=== PATIENT | female | born 1975 | race Caucasian/White ===

== ENCOUNTER 2023-04-25 06:41 | Emergency (ER) | payer OTHER, SELFPAY ==
--- NOTE | ~2023-04-25 | XR_ITS ---
Clinical Indication: Cough PA and lateral views of the chest: Comparison: None Findings: The lungs are clear, without evidence of focal consolidation or pleural effusion. Cardiome diastinal silhouette is within normal limits. Bones and soft tissues are unremarkable. Impression: Normal chest. Reviewed, dictated and finalized at location . FARMER Impression: Normal chest.
[2023-04-25 06:46] VITALS: BP 104/59; PULSE 91; RESP 20; TEMP 36.6; O2SAT 99
[2023-04-25 06:50] VITALS: BP 132/86; PULSE 81; RESP 18; O2SAT 100
[2023-04-25] MEDS: ALBUTEROL SULFATE (*SP) INHALER 2 PUFF INHALATION (07:40)
[2023-04-25 08:21] LABS: Influenza A QL RT-PCR Negative (Negative); Influenza B QL RT-PCR Negative (Negative); SARS-CoV-2 RNA PCR Negative (Negative)
--- NOTE | 2023-04-25 08:55 | ED.GENADULT ---
HPI - General Adult General Chief complaint: Upper Respiratory Infection Stated complaint: Cough, fever Time Seen by Provider: 04/25/23 06:59 History of Present Illness HPI narrative: Patient is a 47-year-old female who presents ER with cough and fever. Ongoing over the last 2 days. Associate with sinus congestion and sore throat. No chest pain or chest pressure. No known sick contacts. No nausea or vomiting. No exertional dyspnea. Patient has been unable to smoke due to her cough and dyspnea. Related Data Allergies Allergy/AdvReac Type Severity Reaction Status Date / Time fish and seafood Allergy Unknown Swelling Uncoded 04/25/23 06:54 of Lip/Tongue/Throat NKDA Allergy Unknown Other Uncoded 04/25/23 06:54 NA Allergy Other Uncoded 04/25/23 06:54 Review of Systems Review of Systems: All systems reviewed & are unremarkable except as noted in HPI and below Constitutional: Constitutional: Denies chills, Reports fatigue and Reports fever(s) ENT: Reports nasal congestion and Reports sore throat Cardiovascular: Cardiovascular: Denies chest pain, Denies rapid heart rate and Denies radiating jaw, neck or arm pain Respiratory: Respiratory: Reports cough, Reports dyspnea and Reports wheezing Gastrointestinal: Gastrointestinal: Denies abdominal pain, Denies nausea and Denies vomiting Genitourinary: Genitourinary: Reports no additional female genitourinary complaints PMFSH Past Medical History Medical History (Updated 04/25/23 @ 09:02 by Rk Spaulding MD) Healthy female adult Surgical History Surgical History (Updated 04/25/23 @ 08:56 by Rk Spaulding MD) History of hysterectomy Exam Narrative: GENERAL: Well-appearing, well-nourished, and in no acute distress. HEAD: Normocephalic, atraumatic. ENT: Mucous membranes moist. NECK: Supple. CHEST: Faint Rales bibasilar. No respiratory distress, frequent cough. HEART: Regular rate and rhythm. Normal peripheral pulses. EXTREMITIES: Normal range of motion. No edema. SKIN: Warm, dry, no rash. NEURO: Alert and oriented x3. PSYCH: Normal mood and affect. Course Course Emergency Course: Patient reports breathing improved with MDI treatment. Discussed results. Discharge home. Vital Signs Vital signs: Vital Signs Temperature 97.9 F 04/25/23 06:46 Pulse Rate 91 04/25/23 06:46 Respiratory Rate 20 04/25/23 06:46 Blood Pressure 104/59 L 04/25/23 06:46 Pulse Oximetry 99 04/25/23 06:46 Oxygen Delivery Room Air 04/25/23 06:46 Temperature 97.9 F 04/25/23 06:46 Pulse Rate 81 04/25/23 06:50 Respiratory Rate 18 04/25/23 06:50 Blood Pressure 132/86 04/25/23 06:50 Pulse Oximetry 100 04/25/23 06:50 Oxygen Delivery Room Air 04/25/23 06:50 Medical Decision Making Vital Signs Vital Signs: Vital Signs Temperature 97.9 F 04/25/23 06:46 Pulse Rate 91 04/25/23 06:46 Respiratory Rate 20 04/25/23 06:46 Blood Pressure 104/59 L 04/25/23 06:46 Pulse Oximetry 99 04/25/23 06:46 Oxygen Delivery Room Air 04/25/23 06:46 Temperature 97.9 F 04/25/23 06:46 Pulse Rate 81 04/25/23 06:50 Respiratory Rate 18 04/25/23 06:50 Blood Pressure 132/86 04/25/23 06:50 Pulse Oximetry 100 04/25/23 06:50 Oxygen Delivery Room Air 04/25/23 06:50 Lab Data Labs: Lab Results 04/25/23 Range/Units 07:40 Influenza A (RT-PCR) Negative (Negative) Influenza B (RT-PCR) Negative (Negative) SARS-CoV-2 RNA (RT-PCR) Negative (Negative) Imaging Data Radiologist's impression: ITS Impressions Chest X-Ray 04/25/23 08:09 Impression: Normal chest. Discharge Plan Discharge Clinical Impression: Bronchitis Patient Disposition: Home, Self-Care Condition: Stable Instructions: Acute Bronchitis (ED) Additional Instructions: Return the ER if she cannot keep down food or water, you have fever over 100.4 ?F, you have chest pain with e
== END 2023-04-25 09:16 | disposition home or self-care (01) ==
LOC: ANHED 09:12
PROVIDERS: Emergency Provider Emergency Medicine
DX: J40 Bronchitis, not specified as acute or chronic (principal); Z20.822 Contact with and (suspected) exposure to COVID-19; Z90.710 Acquired absence of both cervix and uterus
CPT/HCPCS: 71046; 87636; 94664; 99283

== ENCOUNTER 2024-01-30 08:10 | Emergency (ER) | payer OTHER, SELFPAY ==
--- NOTE | ~2024-01-30 | US_ITS ---
LEFT LOWER EXTREMITY VENOUS ULTRASOUND Ordering provider: Leonor Kerr APRN History: . LLE swelling and pain . Comparison: None. FINDINGS: --COMMON FEMORAL: Patent and free of thrombus. Normal compressibility, phasic flow and augmentation. --PROXIMAL SUPERFICIAL FEMORAL: Patent and free of thrombus. Normal compressibility, phasic flow and augmentation. --DISTAL SUPERFICIAL FEMORAL: Patent and free of thrombus. Normal compressibility, phasic flow and au gmentation. --POPLITEAL: Patent and free of thrombus. Normal compressibility, phasic flow and augmentation. --POSTERIOR TIBIAL: Patent and free of thrombus. Normal compressibility, phasic flow and augmentation . IMPRESSION: Negative left lower extremity venous US. No deep vein thrombosis. Reviewed, dictated and finalized at location A.
--- NOTE | ~2024-01-30 | XR_ITS ---
EXAMINATION: XR knee LT min 4V DATE: 01/30/2024 09:51 INDICATION: Left knee pain. Fall. TECHNIQUE: 4 views of left knee were obtained. COMPARISON: None. FINDINGS: Bone alignment is normal. No fracture. There is mild osteoarthritis of medial and lateral c ompartments. No knee joint effusion. IMPRESSION: 1. Mild left knee osteoarthritis. Reviewed, dictated and finalized at location A.
[2024-01-30 08:17] VITALS: BP 159/77; PULSE 85; RESP 20; TEMP 36.4; O2SAT 99
[2024-01-30] MEDS: KETOROLAC (*BKC) 60 MG/2 ML VIAL IM (09:15)
--- NOTE | 2024-01-30 09:18 | ED.EXTPRO ---
HPI - Extremity Problem General Chief complaint: Extremity Problem,Nontraumatic Stated complaint: left knee pain Time Seen by Provider: 01/30/24 08:54 Source: patient Mode of arrival: ambulatory Limitations: no limitations History of Present Illness HPI Narrative: Pt is a 48 year old female who presents to the ER with pain behind her L knee that radiates up to her hip and down to her foot. She reports the pain started about a month ago, but this morning she felt it pop when she was walking up the stairs. Pt endorses pain with movement that feels like a radiating cramp. She denies any shortness of breath, chest pain, or saddle anesthesia. Related Data Allergies Allergy/AdvReac Type Severity Reaction Status Date / Time No Known Drug Allergies Allergy Verified 01/30/24 09:10 fish and seafood Allergy Unknown Swelling Uncoded 01/30/24 08:21 of Lip/Tongue/Throat NA Allergy Other Uncoded 01/30/24 08:21 Review of Systems Review of Systems: All systems reviewed & are unremarkable except as noted in HPI and below PMFSH Past Medical History Medical History Healthy female adult Surgical History Surgical History History of hysterectomy Exam Narrative: GENERAL: Well appearing, well-nourished, non-toxic, in no acute distress. RESPIRATORY: Airway patent, respirations nonlabored. Clear to auscultation bilaterally, no rales, rhonchi, wheezing. CARDIOVASCULAR: Regular rate and rhythm without murmurs, rubs, or gallops. Peripheral pulses 2+ and equal bilaterally. MUSCULOSKELETAL: Moves all extremities. Strength/ROM intact without gross deformities. Valgus and varus tests negative. Ange test negative. SKIN: Warm, dry, normal color. No rashes. NEURO: A&O X3. Speech clear. Cranial nerves II-XII grossly intact. Steady gait. No ataxic movements. . Course Vital Signs Vital signs: Vital Signs Temperature 36.4 C 01/30/24 08:17 Pulse Rate 85 01/30/24 08:17 Respiratory Rate 20 01/30/24 08:17 Blood Pressure 159/77 H 01/30/24 08:17 Pulse Oximetry 99 01/30/24 08:17 Oxygen Delivery Room Air 01/30/24 08:17 Temperature 36.4 C 01/30/24 08:17 Pulse Rate 85 01/30/24 08:17 Respiratory Rate 20 01/30/24 08:17 Blood Pressure 159/77 H 01/30/24 08:17 Pulse Oximetry 99 01/30/24 08:17 Oxygen Delivery Room Air 01/30/24 08:17 MDM - Extremity (Nontraumatic) MDM Narrative Medical decision making narrative: Pt is a 48 year old female who presents to the ER with pain behind her L knee that radiates up to her hip and down to her foot. She reports the pain started about a month ago, but this morning she felt it pop when she was walking up the stairs. Pt endorses pain with movement that feels like a radiating cramp. She denies any shortness of breath, chest pain, or saddle anesthesia. Upon examination, pt moves all extremities. Strength/ROM intact without gross deformities. Valgus and varus tests negative. Ange test negative. Pt has mild swelling behind her L knee compared to her R knee. Wells score is 2 = moderate probability for DVT, positive Tico's test. Will proceed with L knee x-ray and US venous doppler study. Toradol IM ordered to treat swelling and pain. Pt's knee x-ray showed mild left knee osteoarthritis. Venous doppler US was negative with no signs of deep vein thrombosis. Results relayed to pt. OIL BOILER performed. Pt reports she has a history of lower back and was advised to have surgery. Straight leg test was performed, which was negative, but pt did endorse increased knee pain that radiates to her hip with Naseem test. Plan for pt to follow-up with PCP if pain continues. Will prescribe pt steroid pack upon discharge to home and advised pt to take Ibuprofen 800mg TID. Pt in agreement with plan. Differential Diagnosis Differential diagnosis: Likely gout,
[2024-01-30 11:15] VITALS: BP 158/104; PULSE 60; RESP 17; O2SAT 98
[2024-01-30 11:20] VITALS: BP 158/104; PULSE 60; RESP 17; O2SAT 98
== END 2024-01-30 11:18 | disposition home or self-care (01) ==
PROVIDERS: Emergency Provider Registered Nurse
DX: S86.912A Strain of unspecified muscle(s) and tendon(s) at lower leg level, left leg, initial encounter (principal); R60.0 Localized edema; X58.XXXA Exposure to other specified factors, initial encounter
CPT/HCPCS: 73564; 93971; 96372; 99284; J1885

== ENCOUNTER 2024-05-28 22:33 | Emergency (ER) | payer OTHER, SELFPAY ==
--- NOTE | ~2024-05-28 | XR_ITS ---
Clinical Indication: Cough PA and lateral views of the chest: Comparison: 04/25/2023 Findings: The lungs are clear, without evidence of focal consolidation or pleural effusion. Cardiome diastinal silhouette is within normal limits. Bones and soft tissues are unremarkable. Impression: Normal chest. Reviewed, dictated and finalized at location . MEL SELECTOR Impression: Normal chest.
[2024-05-28 22:39] VITALS: BP 143/90; PULSE 83; RESP 16; O2SAT 100
[2024-05-29 00:38] VITALS: TEMP 37.1
[2024-05-29 00:39] VITALS: O2SAT 98
--- NOTE | 2024-05-29 00:51 | ED_ITS ---
HPI - URI/Sore Throat General Chief Complaint: Upper Respiratory Infection Stated Complaint: cough, body aches Time Seen by Provider: 05/29/24 00:32 Source: patient Mode of arrival: ambulatory Limitations: no limitations History of Present Illness HPI Narrative: this is a 48-year-old female that presents to the emergency department for cold symptoms. Ongoing over the last couple of days. Reports cough, congestion, rhinorrhea, sore throat. Also reports myalgias. She has been taking [id number] medications with little relief. No fevers. Related Data Allergies Allergy/AdvReac Type Severity Reaction Status Date / Time fish and seafood Allergy Unknown Swelling Uncoded 05/28/24 22:44 of Lip/Tongue/Throat Review of Systems Review of Systems: CONSTITUTIONAL: Denies fever ENT: Reports rhinorrhea, congestion, sore throat RESPIRATORY: Reports cough All systems reviewed & are unremarkable except as noted in HPI and below PMFSH Past Medical History Medical History Healthy female adult Surgical History Surgical History History of hysterectomy Social History Social History (Updated 05/29/24 @ 00:52 by Jacy Knapp PA-C) Smoking status: Current every day smoker Exam Narrative: GENERAL: Well-appearing, well-nourished, and in no acute distress. HEAD: Normocephalic, atraumatic. EYES: EOMI. ENT: Nares clear, no rhinorrhea or epistaxis. Mucous membranes moist. Oropharynx without tonsillar hypertrophy exudate or other lesions. Bilateral TMs pearly nolan non-bulging NECK: Supple. No adenopathy or masses. CHEST: Clear to auscultation. No respiratory distress. No wheezes rales or rhonchi HEART: Regular rate and rhythm. No murmur heard. Normal peripheral pulses. EXTREMITIES: Normal range of motion. No edema. SKIN: Warm, dry, no rash. NEURO: No focal deficits. Alert and oriented x3. PSYCH: Normal mood and affect Course Course Emergency Course: patient updated on workup and agrees with plan of care Vital Signs Vital signs: Vital Signs Pulse Rate 83 05/28/24 22:39 Respiratory Rate 16 05/28/24 22:39 Blood Pressure 143/90 H 05/28/24 22:39 Pulse Oximetry 100 05/28/24 22:39 Oxygen Delivery Room Air 05/28/24 22:39 Temperature 98.7 F 05/29/24 00:38 Pulse Rate 63 05/29/24 01:17 Respiratory Rate 12 05/29/24 01:17 Blood Pressure 120/91 H 05/29/24 01:17 Pulse Oximetry 98 05/29/24 01:17 Oxygen Delivery Room Air 05/29/24 00:39 MDM - URI/Sore Throat MDM Narrative Medical decision making narrative: patient presents to the emergency department for cold symptoms ongoing over the last couple of days. She is afebrile and nontoxic appearing. Oxygen saturations normal on room air. Influenza, RSV and COVID screens are negative. Chest x-ray without acute cardiopulmonary abnormality. Patient updated on workup and agrees with plan of care. She is to follow up with provider. She was given warnings to return to the ER Differential Diagnosis Differential diagnosis: Likely upper respiratory infection, sinusitis, viral infection, bronchitis, influenza and other (covid, pneumonia) Lab Data Attestation: I reviewed the patient's lab results. Labs: Lab Results 05/29/24 Range/Units 00:38 Influenza A (RT-PCR) Negative (Negative) Influenza B (RT-PCR) Negative (Negative) RSV (RT-PCR) Negative (Negative) SARS-CoV-2 RNA (RT-PCR) Negative (Negative) Imaging Data My impression: Chest x-ray: no acute cardiopulmonary abnormality Critical Care Time Critical Care Time Critical Care Time: No Discharge Plan Discharge Clinical Impression: Acute bronchitis Qualifiers: Bronchitis organism: unspecified organism Qualified Code(s): J20.9 - Acute bronchitis, unspecified Patient Disposition: Home, Self-Care Condition: Stable Instructions: Acute Bronchitis (ED) Additional Instructions: Return to the emergency department for worsening symptoms, or any other concerns Remain well-hydrated, get plenty of rest. Take Tylenol or Motrin [id number] for pain as needed. Flonase for nasal congestion. Zyrtec for runny nose. Lozenges or Chloraseptic spray for sore throat. albuterol 2 puffs every 4-6 hours as needed for shortness of breath. Continue prednisone as pres cribed Follow up with primary care doctor Patient Language: Telugu Prescriptions: New albuterol sulfate [Ventolin HFA] 90 mcg/actuation HFA aerosol inhaler 2 puff inhalation QID PRN (Reason: shortness of breath or wheezing) Qty: 8.5 0RF prednisone 20 mg tablet 40 mg PO DAILY 4 Days Qty: 8 0RF No Action prednisone 50 mg tablet 50 mg PO DAILY Qty: 7 0RF albuterol sulfate 90 mcg/actuation HFA aerosol inhaler 2 puff inhalation QID PRN (Reason: shortness of breath or wheezing) Qty: 8 0RF methylprednisolone [Medrol (Rickie)] 4 mg tablets,dose pack See Rx Instructions .ROUTE .COMPLEX Qty: 21 0RF Rx Instructions: orally per package directions naproxen 500 mg tablet 500 mg PO BID PRN (Reason: pain) Qty: 20 0RF Follow-up/Referrals: PHYSICIAN,DATA CENTER TECHNICIAN [Primary Care Provider] - Joseph Urbina MD [Physician] -
[2024-05-29 00:56] VITALS: PULSE 80; RESP 17
[2024-05-29] MEDS: IPRATROPIUM 0.5 MG/ALBUTEROL SULFATE 2.5 MG AMPUL.NEB 3 ML INHALATION (00:56)
[2024-05-29] MEDS: predniSONE 20 MG TABLET 60 MG PO (01:14)
[2024-05-29 01:17] VITALS: BP 120/91; PULSE 63; RESP 12; O2SAT 98
[2024-05-29 01:20] LABS: Influenza A QL RT-PCR Negative (Negative); Influenza B QL RT-PCR Negative (Negative); RSV RNA, RT-PCR Negative (Negative); SARS-CoV-2 RNA PCR Negative (Negative)
== END 2024-05-29 02:03 | disposition home or self-care (01) ==
PROVIDERS: Emergency Provider Physician Assistant
DX: J20.9 Acute bronchitis, unspecified (principal); Z20.822 Contact with and (suspected) exposure to COVID-19; Z90.710 Acquired absence of both cervix and uterus
CPT/HCPCS: 71046; 87637; 94640; 99283; J7512

== ENCOUNTER 2024-07-14 11:45 | Emergency (ER) | payer OTHER, MEDICAID, SELFPAY ==
--- NOTE | ~2024-07-14 | XR_ITS ---
EXAMINATION: XR chest 2V Exam Date/Time: 07/14/2024 15:15 ADOBE CQ DEVELOPER HISTORY: cough AND SORE THROAT X 2 DAYS Comparison: 05/29/2024. RESULT: Lines, tubes, and devices: None. Lungs and pleura: Clear. Cardiomediastinal silhouette: Stable. Other: No acute osseous or upper abdominal finding. IMPRESSION: No acute cardiopulmonary process. Reviewed, dictated and finalized at location K. E CQ DEVELOPER
--- OUTSIDE RECORDS SUMMARY | 2024-07-14 11:47 | XMS_ITS | Patient Health Summary ---
Author Organization [facility] Address [address] [place] [address] Care Team Providers Care Exhaust Machine Operator Name Role Phone Unavailable Primary Care Provider Unavailabl e Note from [facility],non-owned Affiliates and Associated Physician Practices is amultiple site organization consisting of ambulatory clinics and hospital sitesin [place], [place], [place] and [place]. This disclosure is being madepursuant to the Care Everywhere program and may not contain all information available regarding this patient. Last updated 18.[facility] Allergies No known active allergies Medications * Be aware that medications may not be up to date on this document. Alwaysverify current medications with the patient. * methocarbamol (ROBAXIN) 500 MG tablet(Started 10/01/2020) Take 1,000 mg by mouth 2 times daily * traMADol (ULTRAM) 25 MG TABS tablet Take by mouth every 6 hours as needed * methylPREDNISolone (MEDROL, PETER, PO) Active Problems No known active problems Social History Tobacco Use Types Packs/Day Years Used Date Smoking Tobacco: Every Day Cigarettes Smokeless Tobacco: Never Alcohol Use Standard Drinks/Week Comments Yes 0 (1 standard drink = 0.6 oz pur e alcohol) Sex and Gender Information Value Date Recorded Sex Assigned at Not on file Gender Identity Not on file Sexual Orientation Not on file Last Filed Vital Signs Vital Sign Reading Time Taken Comments Blood Pressure 152/92 12/30/2020 3:32 PM CDT Pulse 92 12/30/2020 3:32 PM CDT Temperature 36.2 ??C (97.1 ??F) 12/30/2020 3:32 PM CD T Respiratory Rate 20 10/09/2020 2:09 PM CDT Oxygen Saturation 96% 12/30/2020 3:32 PM CDT Inhaled Oxygen Concentration - - Weight 76.7 kg (169 lb) 12/30/2020 3:32 PM CDT Height 160 cm (5' 3 ) 12/30/2020 3:32 PM CDT Body Mass Index 29.94 12/30/2020 3:32 PM CDT
--- OUTSIDE RECORDS SUMMARY | 2024-07-14 11:47 | XMS_ITS | Referral Summary ---
Author Organization [facility] Address [address] [place] [address] Care Team Providers Care Lawn Service Supervisor Name Role Phone Unavailable Primary Care Provider Unavailabl e Source Comments [facility],non-owned Affiliates and Associated Physician Practices is amultiple site organization consisting of ambulatory clinics and hospital sitesin [place], [place], [place] and [place]. This disclosure is being madepursuant to the Care Everywhere program and may not contain all information available regarding this patient. Last updated 18.[facility] Allergies No known active allergies Medications * Be aware that medications may not be up to date on this document. Alwaysverify current medications with the patient. Medication Sig Dispensed Refills Start Date End Date Status methocarbamol (ROBAXIN) 500 MG tablet Take 1,000 mg by mouth 2 times daily 10/01/2020 Active traMADol (ULTRAM) 25 MG TABS tablet Take by mouth every 6 hours as needed Active methylPREDNISolone (MEDROL, PETER, PO) Active Active Problems No known active problems Social [...] Mass Index 29.94 12/30/2020 3:32 PM CDT Plan of Treatment Not on file
--- OUTSIDE RECORDS SUMMARY | 2024-07-14 11:47 | XMS_ITS | Continuity of Care Document ---
Author Organization [facility] Address [id number] [place] [address] [address] [place] [address] Phone Care Team Providers Care Pantograph Operator Name Role Phone Doisy, Edward Unavailable Unavailable Advance Directives Directive Yes / No Effective Date File Name No Information Encounters Encounter Description Practice Location Reason(s) For Visit Diagnoses Date Provider Providers Copied on Encounter [facility], [address], [place], [place], [id number], [place] tel:[phone] [facility] No Information [address] Doisy Edward. [address] , [address], [place], [address], [place]. tel:[phone] Family History Family Member Type Diagnosis Age At Onset No Information Payers Payer name Insurance type Covered alliance party ID Authoriza timando(s) Medicaid [facility] [id number] Social History Type Description Quantity Date Captured Comments Sex Female Smoking Status No Information Chief Complaint And Reason For Visit No Information Reason For Referral Reason For Referral No Information History Of Present Illness Encounter Date Complaint History Of Prese nt Illness No Information Functional Status Date Functional Assessmen t No Information Instructions Date Instruction Additional Infor mation No Information Assessments Type Assessment Date No Information Patient Care Teams Name Effective Dates (start - stop) Status Members No Information
--- OUTSIDE RECORDS SUMMARY | 2024-07-14 11:47 | XMS_ITS | Continuity of Care Document ---
Author Organization [facility] Address [address] [place] [address] Phone Care Team Providers Care Recruit Instructor Name Role Phone Nuria MARRUFO Keisha Unavailable Unavailable Allergies, Adverse Reactions, Alerts Substance Reaction Status Criticality No Known Allergies Active No Inform ation Advance Directives Directive Yes / No Effective Date File Name Resuscitation Not Answered N/A N/A Life Support Not Answered N/A N/A Intubation Not Answered N/A N/A Antibiotics Not Answered N/A N/A IV Fluid Support Not Answered N/A N/A Tube Feed Not Answered N/A N/A Other Directive N/A N/A WARNING:The information contained in this section is historical and is provided for information only and does not constitute a legal document or any assurance that the information is still accurate. Please verify the information with the rea of the legal document before using it for clinical purposes. Encounters Encounter Description Practice Location Reason(s) For Visit Diagnoses Date Provider Providers Copied on Encounter [facility], [address], [place], [place], [id number], [place] tel:[phone] [facility] left knee pain (chief complaint) Left knee pain Nuria Valdes. [address], [address], [place], [address], [place]. tel:[phone] Referring Provider: Ruben Smith, [address], [place], [address]. tel:[phone] Family History Family Member Type Diagnosis Age At Onset Mother Problem (finding) Alive and well Father Problem (finding) Alive and well Payers Payer name Insurance type Covered alliance party ID Authoriza timando(s) [place] [place] [employer] [place] [id number] Social History Type Description Quantity Date Captured Comments Alcohol Use Details No Caffeine Use Details coffee and soda 6 cups per day Tobacco Use Status No Information Smoking Status Current every day smoker Smoking Tobacco Use Details Cigarette: No Details Available Cigarette: No Details Available Sex Female Vital Signs Date / Time: Height Weight BMI Pulse Rate Blood Pressure Temperature Respiratory Rate Body Surface Area Head Circumference Head Circ. Percentile Wt./Vinh. Percentile BMI percentile Pulse Ox Inhaled Ox 9:49 AM 63.50 in 142.00 lbs 24.7 6 kg/m eter (2) 55 /min 112/62 mm[Hg] 98.20 F 100 % 100 % Chief Complaint And Reason For Visit From encounter dated '02/28/2013 10:00'. left knee pain (chief complaint) Reason For Referral Reason For Referral No Information History Of Present Illness Encounter Date Complaint History Of Prese nt Illness No Information Functional Status Date Functional Assessmen t No Information Instructions Date Instruction Additional Infor mation No Information Assessments Type Assessment Date No Information Mental Status Date Cognitive Assessment Orientation - Chokio ed to time, place, person, situation. Patient Care Teams Name Effective Dates (start - stop) Status Members No Information
--- OUTSIDE RECORDS SUMMARY | 2024-07-14 11:47 | XMS_ITS | Clinical Summary ---
Author Organization [facility] Address [address] [place] [address] Care Team Providers Care Death Claim Examiner Name Role Phone Unavailable Primary Care Provider Unavailabl e Source Comments [facility],non-owned Affiliates and Associated Physician Practices is amultiple site organization consisting of ambulatory clinics and hospital sitesin [place], [place], [place] and [place]. This disclosure is being madepursuant to the Care Everywhere program and may not contain all information available regarding this patient. Last updated 18.[facility] Allergies No known active allergies Medications * [...] 12/30/2020 3:32 PM CDT Plan of Treatment Health Maintenance Due Date Last Done Comments COLOGUARD (AGES 45-75) - COL ON CA SCREENING 1977 COLON MONITORING 1977 COLONOSCOPY - COLON CA SCREENING 1977 CT COLONOGRAPHY - COLON CA SCREENING 1977 Colorectal Cancer Screening 1977 FIT - COLON CA SCREENING 1977 FLEX SIG - COLON CA SCREENING 1977 LIPID TESTING 1977 MAMMOGRAM 1977 PAP SMEAR 1977 HIV SCREENING 1992 HEPATITIS C SCREENING 11/23/1995 DTAP/TDAP/TD VACCINES (1 - Tdap) 1996 HEPATITIS B VACCINE (1 of 3 - 19+ 3-dose series) 1996 PNEUMOCOCCAL VACCINE (1 of 2 - PCV) 1996 SCREENING FOR DIABETES 10/09/2020 COVID-19 VACCINE (1 - 2023-2 5 season) 2024 INFLUENZA VACCINE (#1) 2024 DEPRESSION SCREENING 06/13/2024 ZOSTER VACCINE (1 of 2) 11/28/2027 HIB VACCINE Aged Out No longer eligi ble based on patient's age to complete this topic HPV VACCINE Aged Out No longer eligi ble based on patient's age to complete this topic MENINGOCOCCAL (Group B) VACCINE Aged Out No longer eligible based on patient's age to complete this topic MENINGOCOCCAL VACCINE Aged Out No gilberto whit eligible based on patient's age to complete this topic
[2024-07-14 12:45] VITALS: BP 120/78; PULSE 80; RESP 16; TEMP 36.3; O2SAT 98
[2024-07-14 13:21] LABS: Strep Group A RT-PCR NOT DETECTED (Negative)
[2024-07-14 13:33] LABS: Influenza A QL RT-PCR Negative (Negative); Influenza B QL RT-PCR Negative (Negative); RSV RNA, RT-PCR Negative (Negative); SARS-CoV-2 RNA PCR Negative (Negative)
--- OUTSIDE RECORDS SUMMARY | 2024-07-14 14:19 | XMS_ITS | Referral Summary ---
Author Organization [facility] Address [address] [place] [address] Care Team Providers Care Supervisor Clam Bed Name Role Phone Unavailable Primary Care Provider Unavailabl e Source Comments [facility],non-owned Affiliates and Associated Physician Practices is amultiple site organization consisting of ambulatory clinics and hospital sitesin [place] and [place]. This disclosure is being madepursuant to the Care Everywhere program and may not contain all information available regarding this patient. Last updated 18.[facility] Allergies No known active allergies Medications * [...]
--- OUTSIDE RECORDS SUMMARY | 2024-07-14 14:19 | XMS_ITS | Clinical Summary ---
Author Organization [facility] Address [address] [place] [address] Care Team Providers Care Nut Grinder Name Role Phone Unavailable Primary Care Provider Unavailabl e Source Comments [facility],non-owned Affiliates and Associated Physician Practices is amultiple site organization consisting of ambulatory clinics and hospital sitesin [place], [place], [place] and [place]. This disclosure is being madepursuant to the Care Everywhere program and may not contain all information available regarding this patient. Last updated 18.[facility] Allergies No known active allergies Medications * [...]
--- OUTSIDE RECORDS SUMMARY | 2024-07-14 14:19 | XMS_ITS | Continuity of Care Document ---
Author Organization [facility] Address [id number] [place] [address] [address] [place] [address] Phone Care Team Providers Care Supervisor Elementary Education Name Role Phone Doisy, Edward Unavailable Unavailable Advance Directives Directive Yes / No Effective Date File Name No Information Encounters Encounter Description Practice Location Reason(s) For Visit Diagnoses Date Provider Providers Copied on Encounter [facility], [address], [place], [place], [id number], [place] tel:[phone] SEC [facility]ly [facility] No Information 199 9 Doisy Edward. [address] , [address], [place], [address], [place]. tel:[phone] Family History Family Member Type Diagnosis Age At Onset No Information Payers Payer name Insurance type Covered republican ID Authoriza timando(s) Medicaid [facility] [id number] Social History Type Description Quantity Date Captured [...]
--- OUTSIDE RECORDS SUMMARY | 2024-07-14 14:19 | XMS_ITS | Continuity of Care Document ---
Author Organization [facility] Address [address] [place] [address] Phone Care Team Providers Care Management Technician Name Role Phone Nuria MARRUFO Keisha Unavailable [...] Diagnoses Date Provider Providers Copied on Encounter [facility], [address], [place], [place], [id number], [place] tel:[phone] [facility] left knee pain (chief complaint) Left knee pain Nuria Valdes. [address], [address], [place], [address], [place]. tel:[phone] Referring Provider: Ruben Smith, [address], [place], [address]. tel:[phone] Family History Family Member Type Diagnosis Age At Onset Mother Problem (finding) Alive and well Father Problem (finding) Alive and well Payers Payer name Insurance type Covered alliance party ID Authoriza timando(s) [place] [employer] CI [id number] Social History Type Description Quantity Date Captured [...] Mental Status Date Cognitive Assessment Orientation - [place] ed to time, place, person, situation. Patient Care Teams Name Effective Dates (start - stop) Status Members No Information
--- OUTSIDE RECORDS SUMMARY | 2024-07-14 14:19 | XMS_ITS | Patient Health Summary ---
Author Organization [facility] Address [address] [place] [address] Care Team Providers Care Food Service Lead Name Role Phone Unavailable Primary Care Provider Unavailabl e Note from [facility],non-owned Affiliates and Associated Physician Practices is amultiple site organization consisting of ambulatory clinics and hospital sitesin [place], [place], [place] and [place]. This disclosure is being madepursuant to the Care Everywhere program and may not contain all information available regarding this patient. Last updated 18.[facility] Allergies No known active allergies Medications [...]
--- NOTE | 2024-07-14 15:15 | ED.URI ---
HPI - URI/Sore Throat General Chief Complaint: Upper Respiratory Infection Stated Complaint: MARTIN,ST,COUGH,CONGESTION Time Seen by Provider: 07/14/24 14:09 Source: patient Mode of arrival: ambulatory Limitations: no limitations History of Present Illness HPI Narrative: This is a 48-year-old female that presents to the emergency department for cold symptoms. Present over the last 2 days. Reports cough, congestion, sore throat, myalgias, headache. Denies fevers. Related Data Allergies Allergy/AdvReac Type Severity Reaction Status Date / Time fish and seafood Allergy Unknown Swelling Uncoded 07/14/24 11:46 of Lip/Tongue/Throat Review of Systems Review of Systems: CONSTITUTIONAL: Denies fever ENT: Reports rhinorrhea, congestion, sore throat CARDIOVASCULAR: Denies chest pain RESPIRATORY: Reports cough and dyspnea. All systems reviewed & are unremarkable except as noted in HPI and below PMFSH Past Medical History Medical History Healthy female adult Surgical History Surgical History History of hysterectomy Social History Social History (Updated 05/29/24 @ 00:52 by Jacy Knapp PA-C) Smoking status: Current every day smoker Exam Narrative: GENERAL: Well-appearing, well-nourished, and in no acute distress. HEAD: Normocephalic, atraumatic. EYES: EOMI. ENT: Nares clear, no rhinorrhea or epistaxis. Mucous membranes moist. Oropharynx without tonsillar hypertrophy exudate or other lesions. Bilateral TMs pearly nolan non-bulging NECK: Supple. No adenopathy or masses. CHEST: No respiratory distress. Mild, expiratory wheezing. No rales or rhonchi HEART: Regular rate and rhythm. No murmur heard. Normal peripheral pulses. EXTREMITIES: Normal range of motion. No edema. SKIN: Warm, dry, no rash. NEURO: No focal deficits. Alert and oriented x3. PSYCH: Normal mood and affect Course Course Emergency Course: patient updated on workup and agrees with plan of care Vital Signs Vital signs: Vital Signs Temperature 97.4 F L 07/14/24 12:45 Pulse Rate 80 07/14/24 12:45 Respiratory Rate 16 07/14/24 12:45 Blood Pressure 120/78 07/14/24 12:45 Pulse Oximetry 98 07/14/24 12:45 Temperature 97.4 F L 07/14/24 12:45 Pulse Rate 80 07/14/24 12:45 Respiratory Rate 16 07/14/24 12:45 Blood Pressure 120/78 07/14/24 12:45 Pulse Oximetry 98 07/14/24 12:45 Oxygen Delivery Room Air 07/14/24 14:06 MDM - URI/Sore Throat MDM Narrative Medical decision making narrative: Patient presents to the emergency department for cold symptoms present over the last 2 days. Patient is afebrile and nontoxic appearing. Oxygen saturation is normal on room air. Chest x-ray without acute cardiopulmonary abnormality. Influenza, RSV and COVID screens are negative. Strep screen is also negative. Patient will be started on oral steroids and given albuterol for acute bronchitis. She is to follow up with primary provider. She was given warnings to return to the ER Differential Diagnosis Differential diagnosis: Likely upper respiratory infection, viral infection, bronchitis, influenza and other (Pneumonia) Lab Data Attestation: I reviewed the patient's lab results. Labs: Lab Results 07/14/24 Range/Units 12:51 Influenza A (RT-PCR) Negative (Negative) Influenza B (RT-PCR) Negative (Negative) RSV (RT-PCR) Negative (Negative) SARS-CoV-2 RNA (RT-PCR) Negative (Negative) Group A Strep (PCR) Not detected (Negative) Imaging Data Radiologist's impression: ITS Impressions Chest X-Ray 07/14/24 15:30 IMPRESSION: No acute cardiopulmonary process. Critical Care Time Critical Care Time Critical Care Time: No Discharge Plan Discharge Clinical Impression: Acute bronchitis Qualifiers: Bronchitis organism: unspecified organism Qualified Code(s): J20.9 - Acute bronchitis, unspecified Patient Disposition: Home, Self-Care Condition: Stable Instructions: Acute Bronchitis (ED) Additional Instructions: Return to the emergency department for worsening symptoms, or any other concerns Remain well-hydrated, get plenty of rest. Take Tylenol or Motrin [id number] for pain as needed. Flonase for nasal congestion. Zyrtec for runny nose. Lozenges or Chloraseptic spray for sore throat. Albuterol 2 puffs every 4-6 hours as needed for shortness of breath or wheezing. Continue oral steroid as prescribed Follow up with primary care doctor Patient Language: Arabic Prescriptions: New prednisone 20 mg tablet 40 mg PO DAILY 4 Days Qty: 8 0RF albuterol sulfate [Ventolin HFA] 90 mcg/actuation HFA aerosol inhaler 2 puff inhalation QID PRN (Reason: shortness of breath or wheezing) Qty: 8.5 0RF No Action albuterol sulfate [Ventolin HFA] 90 mcg/actuation HFA aerosol inhaler 2 puff inhalation QID PRN (Reason: shortness of breath or wheezing) Qty: 8.5 0RF prednisone 20 mg tablet 40 mg PO DAILY 4 Days Qty: 8 0RF prednisone 50 mg tablet 50 mg PO DAILY Qty: 7 0RF albuterol sulfate 90 mcg/actuation HFA aerosol inhaler 2 puff inhalation QID PRN (Reason: shortness of breath or wheezing) Qty: 8 0RF methylprednisolone [Medrol (Rickie)] 4 mg tablets,dose pack See Rx Instructions .ROUTE .COMPLEX Qty: 21 0RF Rx Instructions: orally per package directions naproxen 500 mg tablet 500 mg PO BID PRN (Reason: pain) Qty: 20 0RF Follow-up/Referrals: PHYSICIAN,[facility] [employer] [Primary Care Provider] -
[2024-07-14] MEDS: predniSONE 20 MG TABLET 40 MG PO (15:26)
[2024-07-14 15:44] VITALS: PULSE 55; RESP 16
[2024-07-14] MEDS: IPRATROPIUM 0.5 MG/ALBUTEROL SULFATE 2.5 MG AMPUL.NEB 3 ML INHALATION (15:44)
[2024-07-14 15:51] VITALS: PULSE 65; RESP 16
== END 2024-07-14 16:08 | disposition home or self-care (01) ==
PROVIDERS: Emergency Medicine; Emergency Provider Physician Assistant
DX: J20.9 Acute bronchitis, unspecified (principal); Z20.822 Contact with and (suspected) exposure to COVID-19
CPT/HCPCS: 71046; 87637; 87651; 94640; 99283; J7512

== ENCOUNTER 2024-10-22 08:29 | Outpatient (CLI) | payer OTHER, MEDICAID, SELFPAY ==
--- NOTE | ~2024-10-22 | XR_ITS ---
Lumbosacral Spine: AP and lateral views Clinical History: Pain Findings: The normal lordotic curve is maintained. The vertebral bodies and posterior elements are i ntact. The intervertebral disc spaces are preserved. Mild facet arthropathy present at the mid to lo wer thoracic spine. The sacroiliac joints are normally outlined. Impression: Mild facet arthropathy, as above. Reviewed, dictated and finalized at location . Impression: Mild facet arthropathy, as above.
--- NOTE | ~2024-10-22 | XR_ITS ---
Cervical Spine: AP, lateral, open-mouth views Clinical History: Pain Findings: The normal lordotic curve is maintained. The vertebral bodies and posterior elements appea r intact. There is minimal degenerative disc narrowing at C6-C7. There are minimal facet joint degene rative changes. Pre-vertebral soft tissues are unremarkable. Impression: Minimal degenerative spondylosis, as above. Reviewed, dictated and finalized at location . Impression: Minimal degenerative spondylosis, as above.
--- NOTE | ~2024-10-22 | XR_ITS ---
Clinical Indication: Back pain PA and lateral views of the chest: Comparison: 07/14/2024 Findings: The lungs are clear, without evidence of focal consolidation or pleural effusion. Cardiome diastinal silhouette is within normal limits. Bones and soft tissues are unremarkable. Impression: Normal chest. Reviewed, dictated and finalized at location . Impression: Normal chest.
--- NOTE | ~2024-10-22 | XR_ITS ---
Thoracic spine: Clinical Indication: Back pain AP and lateral views were performed. No fracture is seen. There is normal alignment of the vertebrae. The intervertebral disc spaces appe ar normal. Paravertebral soft tissues appear normal. Impression: No significant abnormalities noted. Reviewed, dictated and finalized at [facility]. Impression: No significant abnormalities noted.
--- OUTSIDE RECORDS SUMMARY | 2024-10-22 08:44 | XMS_ITS | Clinical Summary ---
Author Organization [facility] Address [address] [place] [address] Care Team Providers Care Hydraulic Press Servicer Name Role Phone Unavailable Primary Care Provider Unavailabl e Source Comments [facility],non-owned Affiliates and Associated Physician Practices is amultiple site organization consisting of ambulatory clinics and hospital sitesin [place], [place], [place] and [place]. This disclosure is being madepursuant to the Care Everywhere program and may not contain all information available regarding this patient. Last updated 18.[facility] Allergies No known active allergies Medications * Be aware that medications may not be up to date on this document. Alwaysverify current medications with the patient. methocarbamol (ROBAXIN) 500 MG tablet Take 1,000 mg by mouth 2 times daily 10/01/2020 Active traMADol (ULTRAM) 25 MG TABS tablet Take by mouth every 6 hours as needed Active methylPREDNISolo ne (MEDROL, PETER, PO) Active Active Problems No known active problems Social History Tobacco Use Types Packs/Day Years Used Date Smoking Tobacco: Every Day Cigarettes Smokeless Tobacco: Never Alcohol Use Standard Drinks/Week Comments Yes 0 (1 standard drink = 0.6 oz pur e alcohol) Comments Unknown Sex and Gender Information Value Date Recorded Sex Assigned at Not on file Legal Sex Female 2:58 PM CDT Gender Identity Not on file Sexual Orientation Not on file Last Filed Vital Signs Vital Sign Reading Time Taken Comments Blood Pressure 152/92 12/30/2020 3:32 PM CDT Pulse 92 12/30/2020 3:32 PM CDT Temperature 36.2 C (97.1 F) 12/30/2020 3:32 PM CDT Respiratory Rate 20 10/09/2020 2:09 PM CDT [...] SCREENING 1977 LIPID TESTING 1977 MAMMOGRAM 1977 HIV SCREENING 1992 HEPATITIS C SCREENING 11/23/1995 DTAP/TDAP/TD VACCINES (1 - Tdap) 1996 HEPATITIS B VACCINE (1 of 3 - 19+ 3-dose series) 1996 SCREENING FOR DIABETES 10/09/2020 COVID-19 VACCINE (1 - 2023-2 5 season) 2024 DEPRESSION SCREENING 06/13/2024 INFLUENZA VACCINE (Season Ended) 2025 ZOSTER VACCINE (1 of 2) 11/28/2027 HIB VACCINE Aged Out No longer eligi ble based on patient's age to complete this topic HPV VACCINE Aged Out No longer eligi ble based on patient's age to complete this topic MENINGOCOCCAL (Group B) VACC INE SHARED DECISION-MAKING Aged Out No longer eligibl e based on patient's age to complete this topic MENINGOCOCCAL GROUPS A/C/Y/W VACCINE Aged Out No longer eligible b ased on patient's age to complete this topic PNEUMOCOCCAL VACCINE Aged Out No long er eligible based on patient's age to complete this topic
[2024-10-22 09:18] LABS: Hematocrit 38.7 % (37.0-47.0); Mean Corpuscular Volume 67.8 fl (80-100); Mean Platelet Volume 9.7 fl (7.4-10.4); Platelet Count Result 337 k/mm3 (150-375); Red Blood Count 5.71 M/mm3 (4.2-5.4)
[2024-10-22 09:31] LABS: Alanine Aminotransferase 18 U/L (6-35); Albumin Level 4.2 g/dL (3.5-5.1); Alkaline Phosphatase 56 U/L (38-126); Anion Gap 7 mmol/L (4-12); Aspartate Amino Transferase 22 U/L (14-36); Bilirubin,Total 0.8 mg/dL (0.2-1.3); Blood Urea Nitrogen 10 mg/dL (7-17); Carbon Dioxide 26 mmol/L (22-30); Chloride 105 mmol/L (98-107); Cholesterol 186 mg/dL (0-200); Estimated Glomerular Filt Rate > 60; Glucose 85 mg/dL (65-110); HDL Direct 37 mg/dL; Sodium 138 mmol/L (137-145); Triglycerides 104 mg/dL (<150)
[2024-10-22 09:42] LABS: LDL Cholesterol Direct 118 mg/dL
[2024-10-22 09:44] LABS: Add Urine Microscopic? YES; Appearance Urine Cloudy (Clear); Bacteria Urine 1+ /hpf; Bilirubin Urine Negative (Negative); Blood Urine Negative (Negative); Color Urine Yellow (Yellow); Glucose Urine UA Negative (Negative); Ketones Urine Negative (Negative); Leukocyte Esterase Ur Negative LEU/UL (Negative); Nitrate Urine Negative (Negative); Non Pathogenic Casts 0-2; Protein Urine Negative (Negative); RBC Urine 0-2 /hpf (0-2); Squamous Epithelial Cell Urine Many /hpf (Few); Urobilinogen Urine 0.2 mg/dL (<2.0)
[2024-10-22 09:51] LABS: Hemoglobin A1C 4.8 % (<5.7)
[2024-10-22 10:06] LABS: Free T4 Free Thyroxine 1.27 ng/dL (0.78-2.19); Vitamin D 25 Hydroxy 17.7 ng/mL
[2024-10-22 10:25] LABS: Creatinine Urine 64.1 mg/dL
[2024-10-22 10:39] LABS: MALB Creatinine Ratio < 9.4 mg/g (0-30); Microalbumin Urine Random < 6.0 mg/L (0-16.7)
== END 2024-10-22 08:30 | disposition home or self-care (01) ==
LOC: ANHLAB 08:37
PROVIDERS: PCP Emergency Medicine; Visit Provider Emergency Medicine
DX: Z00.00 Encounter for general adult medical examination without abnormal findings (principal); M47.892 Other spondylosis, cervical region; M47.894 Other spondylosis, thoracic region
CPT/HCPCS: 36415; 71046; 72040; 72072; 72100; 80053; 80061; 81001; 82043; 82306; 83036; 84439; 84443; 85027

== ENCOUNTER 2024-11-07 15:40 | Outpatient (CLI) | payer OTHER, MEDICAID, SELFPAY ==
--- NOTE | ~2024-11-07 | US_ITS ---
EXAMINATION:US venous doppler LE LT INDICATION:Lump under left knee TECHNIQUE: Multiple grayscale, color flow and Doppler images of the left lower extremity deep venous systems were obtained and reviewed. COMPARISON:No prior studies for comparison. FINDINGS: The common femoral, superficial femoral and popliteal veins demonstrate normal respiratory variation, augmentation and compressibility. Color flow is also seen within the posterior tibial, pe roneal, greater saphenous and profunda veins. IMPRESSION: 1: No lower extremity deep venous thrombosis. Reviewed, dictated and finalized at location A.
--- OUTSIDE RECORDS SUMMARY | 2024-11-07 15:45 | XMS_ITS | Continuity of Care Document ---
Author Organization [facility] Address [address] [place] [address] [address] [place] [address] Phone Care Team Providers Care Insurance Follow Up Specialist Name Role Phone Doisy, Edward Unavailable Unavailable Advance Directives Directive Yes / No Effective Date File Name No Information Encounters Encounter Description Practice Location Reason(s) For Visit Diagnoses Date Provider Providers Copied on Encounter [facility], [address], [place], [place], [id number], [place] tel:[phone] SEC [facility] No Information 199 9 Doisy Edward. [address] , [address], [place], [address], [place]. tel:[phone] Family History Family Member Type Diagnosis Age At Onset No Information Payers Payer name Insurance type Covered republican ID Authoriza timando(s) Medicaid [facility] [id number] Social History Type Description Quantity Date Captured [...]
--- OUTSIDE RECORDS SUMMARY | 2024-11-07 15:45 | XMS_ITS | Continuity of Care Document ---
Author Organization [facility] Address [address] [place] [address] Phone Care Team Providers Care Counter Maker Name Role Phone Nuria MARRUFO Keisha Unavailable [...] Diagnoses Date Provider Providers Copied on Encounter [facility], [address], [place], [place], [address], [place] tel:[phone] [facility] left knee pain (chief complaint) Left knee pain Nuria Valdes. [address], [address], [place], [address], [place]. tel:[phone] Referring Provider: Ruben Smith, [address], [place], [address]. tel:[phone] Family History Family Member Type Diagnosis Age At Onset Mother Problem (finding) Alive and well Father Problem (finding) Alive and well Payers Payer name Insurance type Covered democrat ID Authoriza timando(s) [place] [employer] CI [id number] Social History Type Description Quantity Date Captured Comments Alcohol Use Details No Caffeine Use Details coffee and soda 6 cups per day Tobacco Use Status No Information Smoking Status Current every day smoker Smoking Tobacco Use Details Cigarette: No Details Available Cigarette: No Details Available Sex Female Sexual Orientation Straight or heterosexual Vital Signs Date / Time: Height Weight [...] Mental Status Date Cognitive Assessment Orientation - [place] ed to time, place, person, situation. Patient Care Teams Name Effective Dates (start - stop) Status Members No Information
--- OUTSIDE RECORDS SUMMARY | 2024-11-07 15:45 | XMS_ITS | Clinical Summary ---
Author Organization [facility] Address [address] [place] [address] Care Team Providers Care Bone Puller Name Role Phone Unavailable Primary Care Provider Unavailabl e Source Comments [facility],non-owned Affiliates and Associated Physician Practices is amultiple site organization consisting of ambulatory clinics and hospital sitesin [place], [place], [place] and [place]. This disclosure is being madepursuant to the Care Everywhere program and may not contain all information available regarding this patient. Last updated 18.[facility] Allergies No known active allergies Medications * [...] 3:32 PM CDT Height 160 cm (5' 3) 12/30/2020 3:32 PM CDT Body Mass Index [...]
== END 2024-11-07 15:41 | disposition home or self-care (01) ==
PROVIDERS: PCP Emergency Medicine; Visit Provider Emergency Medicine
DX: M54.6 Pain in thoracic spine (principal)
CPT/HCPCS: 93971

== ENCOUNTER 2024-12-29 09:56 | Emergency (ER) | payer OTHER, MEDICAID, SELFPAY ==
--- NOTE | ~2024-12-29 | XR_ITS ---
EXAMINATION: XR chest 2V 12/29/2024 10:45 INDICATION: Chest pain PROCEDURE: 2 view chest COMPARISON: Comparison to multiple prior studies sequentially, with oldest reviewed study dated 04/13. FINDINGS: The lungs are clear. The cardiomediastinal silhouette is within normal limits. There are no pleural effusions. There is no pneumothorax suspected. IMPRESSION: 1: NO ACUTE CARDIOPULMONARY DISEASE. Reviewed, dictated and finalized at location A.
--- OUTSIDE RECORDS SUMMARY | 2024-12-29 09:59 | XMS_ITS | Clinical Summary ---
Author Organization [facility] Address [address] [place] [address] Care Team Providers Care Dry Transfer Man Name Role Phone Unavailable Primary Care Provider Unavailabl e Source Comments [facility],non-owned Affiliates and Associated Physician Practices is amultiple site organization consisting of ambulatory clinics and hospital sitesin [place], [place], [place] and [place]. This disclosure is being madepursuant to the Care Everywhere program and may not contain all information available regarding this patient. Last updated 18.[facility] Allergies No known active allergies Medications * [...] season) 2024 DEPRESSION SCREENING 06/13/2024 INFLUENZA VACCINE (#1) 2025 ZOSTER VACCINE (1 of 2) 11/28/2027 [...]
[2024-12-29 10:13] VITALS: BP 173/80; PULSE 55; RESP 20; O2SAT 100
--- NOTE | 2024-12-29 10:17 | ECG_ITS ---
Test Date: 2024-12-29 10:24:15 Measurements Intervals [place] Rate: 52 P: 57 NE: 171 QRS: 63 QRSD: 87 T: 45 QT: 435 QTc: 405 Interpretive Statements SINUS BRADYCARDIA WITH SINUS ARRHYTHMIA NORMAL ELECTROCARDIOGRAM No previous ECG available for comparison Electronically Signed On 12-30-2024 08:01:14 CDT by Amilcar Park M.D.
[2024-12-29 10:26] VITALS: TEMP 36.8
[2024-12-29 10:33] VITALS: O2SAT 100
[2024-12-29 10:45] LABS: Hematocrit 38.6 % (37.0-47.0); Hemoglobin 12.0 g/dL (12.0-15.0); Immature Granulocyte Percent A 0.2 % (0-0.5); Lymphocytes Absolute Auto 3.00 K/mm3 (0.9-3.2); Mean Corpuscular HGB Conc 31.1 g/dl (32-36); Mean Corpuscular Hemoglobin 21.0 pg (26-34); Mean Corpuscular Volume 67.6 fl (80-100); Nucleated Red Blood Cells Absolute Auto 0.000 K/mm3 (0.0-0.012); Nucleated Red Blood Cells Perc 0.0 % (0.0-0.2); Platelet Count Result 366 k/mm3 (150-375); Red Blood Count 5.71 M/mm3 (4.2-5.4); White Blood Count 5.9 K/mm3 (4.5-10.0)
--- OUTSIDE RECORDS SUMMARY | 2024-12-29 10:48 | XMS_ITS | Clinical Summary ---
Author Organization [facility] Address [address] [place] [address] Care Team Providers Care Investigative Agent Name Role Phone Unavailable Primary Care Provider Unavailabl e Source Comments [facility],non-owned Affiliates and Associated Physician Practices is amultiple site organization consisting of ambulatory clinics and hospital sitesin [place], [place], [place] and [place]. This disclosure is being madepursuant to the Care Everywhere program and may not contain all information available regarding this patient. Last updated 18.[facility] Allergies No known active allergies Medications * [...]
--- NOTE | 2024-12-29 10:49 | ED.GENADULT ---
HPI - General Adult General Chief complaint: Chest Pain Stated complaint: chest tightness, congestion Time Seen by Provider: 12/29/24 10:12 History of Present Illness HPI narrative: This is a 49-year-old female presenting for headache. Patient has a history of chronic shoulder neck pain. His bother her more than usual over last several days and she now has left-sided neck pain and developed a headache. Patient also feels that she has chest tightness and sometimes initiating a swallow. However when she initiates swallow she does not have any difficulty/pain/choking. This is intermittent. She is not currently having symptoms. Patient is tearful and crying during the interview. Patient says she has a history of anxiety panic attacks. She denies any numbness when weakness or tingling to any extremity. She is able to eat and drink. She has appointment to see her primary care physician on Tuesday. Related Data Allergies Allergy/AdvReac Type Severity Reaction Status Date / Time fish and seafood Allergy Unknown Swelling Uncoded 12/29/24 10:35 of Lip/Tongue/Throat PMFSH Past Medical History Medical History Healthy female adult Surgical History Surgical History History of hysterectomy Social History Social History (Updated 05/29/24 @ 00:52 by Jacy Knapp PA-C) Smoking status: Current every day smoker Exam Narrative: APPEARANCE: No apparent distress. Head: atraumatic. Posterior oropharynx is non erythematous with no exudates, rib floor the mouth is soft EYES: EOMI, NOSE: Atraumatic NECK: Trachea midline supple RESPIRATORY: No increased rate of breathing clear to auscultation CARDIOVASCULAR: RRR, no peripheral edema ABDOMINAL: Non-distended soft nontender MUSCULOSKELETAl: Tenderness to palpation over the left trapezius, no midline spinal tenderness NEURO: Alert. Cranial nerves 2-12 grossly intact. Sensation light touch, motor function cerebellar function intact for 4 extremities. Gait exam was normal. SKIN:: Warm, dry. Normal color PSYCHIATRIC: Normal affect Course Vital Signs Vital signs: Vital Signs Pulse Rate 55 L 12/29/24 10:13 Respiratory Rate 20 12/29/24 10:13 Blood Pressure 173/80 H 12/29/24 10:13 Pulse Oximetry 100 12/29/24 10:13 Oxygen Delivery Room Air 12/29/24 10:13 Temperature 98.3 F 12/29/24 10:26 Pulse Rate 55 L 12/29/24 10:13 Respiratory Rate 12/29/24 10:13 Blood Pressure 173/80 H 12/29/24 10:13 Pulse Oximetry 100 12/29/24 10:33 Oxygen Delivery Room Air 12/29/24 10:33 Medical Decision Making [facility] Narrative Medical decision making narrative: -Course: 49 female presenting multiple complaints although the main issue appears to be a headache. Vital signs stable. Afebrile. Neuro exam normal. No red flags on H&P. Patient has significant shoulder and neck muscle soreness. This is likely causing a tension headache. She was treated with muscle relaxers and NSAIDs with complete resolution of her headache. Patient was also concerned she might be having a heart attack but her chest pain workup including 2 EKGs and troponins were unremarkable. On re-evaluation patient is resting comfortably. She is requesting discharge home and will see her primary care physician on Tuesday. She develops any new or worsening symptoms she can return to the ED for re-evaluation. -DDX includes but is not limited to: Tension headache, migraine, arthritis viral syndrome Independent EKG interpretation: Rhythm [sinus], Rate [52], [place] -[normal], [place] -[normal], QRS [narrow], QTC [normal], T waves -[negative for concerning inversions], ST Segments - [Negative for concerning elevations] Final interpretations: Sinus bradycardia Vital Signs Vital Signs: Vital Signs Pulse Rate 55 L 12/29/24 10:13 Respiratory Rate 12/29/24 10:13 Blood Pressure 173/80 H 12/29/24 10:13 Pulse Oximetry 100 12/29/24 10:13 Oxygen Delivery Room Air 12/29/24 10:13 Temperature 98.3 F 12/29/24 10:26 Pulse Rate 55 L 12/29/24 10:13 Respiratory Rate 12/29/24 10:13 Blood Pressure 173/80 H 12/29/24 10:13 Pulse Oximetry 100 12/29/24 10:33 Oxygen Delivery Room Air 12/29/24 10:33 Lab Data 12/29/24 10:36 12/29/24 10:36 Labs: Lab Results 12/29/24 Range/Units 10:36 WBC Pending RBC Pending Hgb Pending Hct Pending MCV Pending MCH Pending MCHC Pending RDW Pending Plt Count Pending MPV Pending Immature Gran % (Auto) Pending Neut % (Auto) Pending Lymph % (Auto) Pending [place] % (Auto) Pending Eos % (Auto) Pending Baso % (Auto) Pending Lymph # (Auto) Pending [place] # (Auto) Pending Eos # (Auto) Pending Baso # (Auto) Pending Abs Immat Gran (auto) Pending Absolute Neuts (auto) Pending Absolute Nucleated RBC Pending Nucleated RBC % Pending PT Pending INR Pending APTT Pending Sodium Pending Potassium Pending Chloride Pending Carbon Dioxide Pending Anion Gap Pending BUN Pending Creatinine Pending Estim Creat Clear Calc Pending Estimated GFR Pending Glucose Pending Calcium Pending Total Bilirubin Pending AST Pending ALT Pending Alkaline Phosphatase Pending Troponin I Pending Total Protein Pending Albumin Pending Lipase Pending Discharge Plan Discharge Clinical Impression: Headache Patient Disposition: Home Condition: Stable Instructions: Antibiotic Form, Acute Headache (DC) Additional Instructions: You were seen in the emergency department for a headache. Please take Motrin Tylenol Robaxin as needed for headaches and neck tension. Please follow-up with your primary care physician at your appointment on Tuesday. If you develop any new or worsening symptoms such as fevers or weakness to any extremity please return to the ED for re-evaluation. Patient Language: Japanese Prescriptions: New ibuprofen 800 mg tablet 800 mg PO TID PRN (Reason: pain) 7 Days Qty: 21 0RF acetaminophen 500 mg tablet 1,000 mg PO TID PRN (Reason: lyly) 7 Days Qty: 42 0RF methocarbamol 750 mg tablet 1,500 mg PO TID Qty: 42 0RF No Action albuterol sulfate [Ventolin HFA] 90 mcg/actuation HFA aerosol inhaler 2 puff inhalation QID PRN (Reason: shortness of breath or wheezing) Qty: 8.5 0RF prednisone 20 mg tablet 40 mg PO DAILY 4 Days Qty: 8 0RF prednisone 20 mg tablet 40 mg PO DAILY 4 Days Qty: 8 0RF albuterol sulfate [Ventolin HFA] 90 mcg/actuation HFA aerosol inhaler 2 puff inhalation QID PRN (Reason: shortness of breath or wheezing) Qty: 8.5 0RF prednisone 50 mg tablet 50 mg PO DAILY Qty: 7 0RF albuterol sulfate 90 mcg/actuation HFA aerosol inhaler 2 puff inhalation QID PRN (Reason: shortness of breath or wheezing) Qty: 8 0RF methylprednisolone [Medrol (Rickie)] 4 mg tablets,dose pack See Rx Instructions .ROUTE .COMPLEX Qty: 21 0RF Rx Instructions: orally per package directions naproxen 500 mg tablet 500 mg PO BID PRN (Reason: pain) Qty: 20 0RF Follow-up/Referrals: Joseph Urbina MD [Primary Care Provider] -
[2024-12-29 10:58] LABS: INR 1.0; Prothrombin Time 13.7 Seconds (11.1-14.7)
[2024-12-29 10:59] LABS: Partial Thromboplastin Time 28.0 Seconds (22.3-36.8)
[2024-12-29 11:14] LABS: Alanine Aminotransferase 23 U/L (6-35); Albumin Level 4.3 g/dL (3.5-5.1); Alkaline Phosphatase 48 U/L (38-126); Anion Gap 8 mmol/L (4-12); Aspartate Amino Transferase 31 U/L (14-36); Bilirubin,Total 0.6 mg/dL (0.2-1.3); Blood Urea Nitrogen 11 mg/dL (7-17); Calcium 9.0 mg/dL (8.4-10.2); Carbon Dioxide 24 mmol/L (22-30); Chloride 107 mmol/L (98-107); Estimated CRCL calculation 77 ml/min; Estimated Glomerular Filt Rate > 60; Glucose 82 mg/dL (65-110); Lipase 47 U/L (23-300); Potassium 3.9 mmol/L (3.4-5.0); Sodium 139 mmol/L (137-145); Total Protein 7.5 g/dL (6.3-8.2)
[2024-12-29 11:17] LABS: Burr Cells 1+; Hypochromasia 1+; Microcytosis 1+ (NORMAL); Ovalocytes 1+; Schistocytes None Seen
[2024-12-29] MEDS: IBUPROFEN 400 MG TABLET 800 MG PO (11:17)
[2024-12-29] MEDS: ACETAMINOPHEN 500 MG TABLET 1000 MG PO (11:17)
[2024-12-29] MEDS: LIDOCAINE 5% PATCH 1 PATCH TRANSDERM (11:17)
[2024-12-29] MEDS: ASPIRIN 81 MG CHEWABLE TABLET 324 MG PO (11:17)
[2024-12-29] MEDS: diazePAM INJ (*CRX) 10 MG/2 ML SYRINGE 5 MG IV PUSH (11:18)
[2024-12-29 11:22] LABS: Troponin I < 0.012 ng/mL (0.000-0.034)
[2024-12-29 11:32] VITALS: BP 146/35; PULSE 56; RESP 16; O2SAT 100
--- NOTE | 2024-12-29 13:11 | ECG_ITS ---
Test Date: 2024-12-29 13:16:59 Measurements Intervals [place] Rate: 47 P: 51 MT: 178 QRS: 61 QRSD: 90 T: 43 QT: 475 QTc: 420 Interpretive Statements SINUS BRADYCARDIA OTHERWISE NORMAL ECG Compared to ECG 12/29/2024 10:24:15 NO SIGNIFICANT CHANGE Electronically Signed On 12-30-2024 08:04:12 CDT by Amilcar Park M.D.
[2024-12-29 13:31] VITALS: BP 146/74; PULSE 51; RESP 14; O2SAT 100
[2024-12-29 13:54] LABS: Troponin I < 0.012 ng/mL (0.000-0.034)
[2024-12-29 14:55] VITALS: BP 141/63; PULSE 54; RESP 18; O2SAT 100
== END 2024-12-29 14:57 | disposition home or self-care (01) ==
PROVIDERS: Emergency Provider Emergency Medicine; PCP Emergency Medicine
DX: R51.9 Headache, unspecified (principal); F17.200 Nicotine dependence, unspecified, uncomplicated; Z90.710 Acquired absence of both cervix and uterus; R00.1 Bradycardia, unspecified
CPT/HCPCS: 36415; 71046; 80053; 83690; 84484; 85025; 85610; 85730; 93005; 96374; 99284; A9270; J3360

== ENCOUNTER 2025-03-28 17:21 | Emergency (ER) | payer MEDICAID, SELFPAY ==
--- NOTE | ~2025-03-28 | XR_ITS ---
XR knee LT min 4V INDICATION: injury . COMPARISON: None. FINDINGS: Frontal, lateral and oblique views of the left knee demonstrate no acute fracture or dislocation. There is no joint effusion. IMPRESSION: Radiographic examination of the left knee demonstrates no acute fracture or dislocation. Reviewed, dictated and finalized at location S. IMPRESSION: Radiographic examination of the left knee demonstrates no acute fracture or dis location.
[2025-03-28 17:32] VITALS: BP 156/103; PULSE 86; RESP 20; TEMP 36.5; O2SAT 96
--- NOTE | 2025-03-28 18:05 | ED.LOWEXIN ---
HPI - Extremity Injury (Lower) General Chief Complaint: Extremity Injury, Lower Stated Complaint: lt knee injury Time Seen by Provider: 03/28/25 17:45 Source: patient and RN notes reviewed Mode of arrival: ambulatory Limitations: no limitations History of Present Illness HPI Narrative: 49-year-old female presents Express Care complaining left knee pain. Patient says she has been dental chronic knee pain over the last year however today she was walking down steps at home when her left knee gotten she fell injuring her left knee more. Patient denies any in her head or any loss of consciousness, neck pain of back pain, or any other injuries. Patient reports the pain is primarily to the back of her knee. Patient says she is able to bear weight however is painful. Patient is not taking of his pain. Patient has multiple venous duplex studies to her left lower extremity shows no evidence of blood clots over the last year. Patient has any chest pain or shortness of breath, dizziness, lightheadedness. Patient has any history of blood clots. Patient denies any recent travels or any recent major surgeries. Patient has a follow-up with her PCP and less than a week for evaluation of her left knee pain. Related Data Home Medications ?Medication ?Instructions ?Recorded ?Confirmed ?Last Taken ?Type No Home Medications 03/28/25 03/28/25 Unknown History Allergies Allergy/AdvReac Type Severity Reaction Status Date / Time fish and seafood Allergy Unknown Swelling Uncoded 03/04/25 08:56 of Lip/Tongue/Throat Review of Systems Review of Systems: CONSTITUTIONAL: Denies fever, chills, or sweats. EYES: Denies visual changes, redness, or discharge. ENT: Denies rhinorrhea, congestion, sore throat, or otalgia. CARDIOVASCULAR: Denies chest pain, palpitations, dizziness, lightheadedness, or edema. RESPIRATORY: Denies cough or dyspnea. GASTROINTESTINAL: Denies abdominal pain, nausea, vomiting, or diarrhea. GENITOURINARY: Denies dysuria or hematuria. SKIN: Denies rash or itching. MUSCULOSKELETAL: Denies back pain, neck pain, joint pain, or myalgia. Positive for left knee pain. NEUROLOGIC: Denies headache, loss of consciousness, seizures, numbness, or weakness. PSYCHIATRIC: Denies anxiety or depression. All other systems reviewed are negative, except as documented in HPI. [facility] Past Medical History Medical History Hypertension BMI 29.0-29.9,adult Healthy female adult Surgical History Surgical History Hx of section 1995; 2000 (2; July and May) History of hysterectomy 2013 Family History Family History Father No problems noted. Mother Hypertension Asthma Social History Social History Smoking packs per day: 0.5 Smoking cigarettes per day: 10.0 Years smoked: 30 Smoking pack-years: 15.00 Smoking status: Current every day smoker Second hand tobacco smoke exposure: No Alcohol intake: current Substance use: current Substance use type: marijuana Do You Feel Safe in your Home?: Yes Lack of Transportation: YES Lack of Food: Never True Current Housing: I Have Housing Concerned About Future Housing: No Difficulty Paying Gas/Electric Bills: YES Difficulty Paying for Meds: No Currently Unemployed: No Education: High School Diploma/GED Difficulty w/ Childcare or Family Care: No Living arrangements: alone Occupation/Education: occupation Additional occupation/education comments: [employer] Gender identity (if verbalized by the patient): Female Comments At the time of my signature, I reviewed and agree with the nursing past medical, surgical, social, and family history. There is no relevant family history pertinent to the patient complaint. Exam Narrative: GENERAL: This is a well-nourished, well-developed adult, in no apparent distress. They are non ill-appearing, nontoxic appearing. HEAD: normocephalic, atraumatic. EYES: Sclera clear/white. Conjunctiva normal. Vision is grossly intact. Extraocular movements intact EARS: External ears normal,Hearing grossly intact. NOSE: External nose normal THROAT: Mucous membranes moist, NECK: Neck supple, non-tender without lymphadenopathy, masses or thyromegaly. CARDIOVASCULAR: Regular rate and rhythm RESPIRATORY: Normal respiratory exam SKIN: warm, Dry, intact with no suspicious lesions or rash, good texture and turgor. NEURO: awake, alert, and oriented to person, place and time. There were no obvious focal neurologic abnormalities. EXTREMITIES: Left knee: No hives deformity, bruising redness, swelling over injury. No valgus or varus laxity. Negative anterior drawer test. Tenderness to palpation to the posterior knee. No palpable cord. No other tenderness throughout the venous system. Capillary refill less than 2 seconds. Sensation intact. Mild pain through full range of motion. Neurovascular status intact distally. No edema. Course Course Emergency Course: Portions of this record may have been created with voice recognition software Level of Care: Express Care Visit Vital Signs Vital signs: Vital Signs Temperature 97.7 F 03/28/25 17:32 Pulse Rate 86 03/28/25 17:32 Respiratory Rate 20 03/28/25 17:32 Blood Pressure 156/103 H 03/28/25 17:32 Pulse Oximetry 96 03/28/25 17:32 Oxygen Delivery Room Air 03/28/25 17:32 Temperature 97.7 F 03/28/25 17:32 Pulse Rate 86 03/28/25 17:32 Respiratory Rate 20 03/28/25 17:32 Blood Pressure 156/103 H 03/28/25 17:32 Pulse Oximetry 96 03/28/25 17:32 Oxygen Delivery Room Air 03/28/25 17:32 Reviewed MDM - Extremity Injury (Lower) MDM Narrative Medical decision making narrative: X-ray negative for any fractures or acute findings. Patient given Cuauhtemoc wrap for compression. Advised patient to follow-up with PCP next week as scheduled. Patient has had multiple venous duplex studies that were negative for blood clots. Low suspicion for DVT. Discussed physical exam findings. Advised supportive measures and signs/symptoms to go to the ER. Pt is appropriate for outpt treatment and f/u. Differential Diagnosis Differential diagnosis: Likely other (Knee sprain, knee fracture, Zacarias cyst, bursitis, DVT) Imaging Data Radiologist's impression: ITS Impressions Knee X-Ray 03/28/25 17:43 IMPRESSION: Radiographic examination of the left knee demonstrates no acute fracture or dislocation. Critical Care Time Critical Care Time Critical Care Time: No Discharge Plan Discharge Clinical Impression: Knee pain, left Qualifiers: Chronicity: acute Qualified Code(s): M25.562 - Pain in left knee Patient Disposition: Home Condition: Stable Instructions: Antibiotic Form, Knee Pain (ED) Additional Instructions: The x-ray of your left knee is negative for any fractures or acute findings. Rest and elevate the leg; bear weight as tolerated Apply ice or heat 15-20 minute intervals several times a day Keep it wrapped with CUAUHTEMOC or use a knee brace You may take ibuprofen 600 mg to 800 mg every 6-8 hours. Do not exceed more than 800 mg of ibuprofen per dose. Do not exceed more than 3200 mg ibuprofen in a day. You may take up to 1000 mg Tylenol every 6-8 hours. Do not exceed 1000 mg per dose, do exceed more than 4000 mg of Tylenol in a day. Follow up with your primary care provider next week Go to the ER if he develops severe leg swelling, or worsening leg pain, chest pain, difficulty breathing, or any serious concerns. Patient Language: South African Prescriptions: No Action No Home Medications Follow-up/Referrals: UNKNOWN,DOCTOR [Primary Care Provider] Stand Alone Forms: Work/School Release IP Time of Disposition: 17:57
== END 2025-03-28 18:11 | disposition home or self-care (01) ==
DX: M25.562 Pain in left knee (principal); F17.210 Nicotine dependence, cigarettes, uncomplicated; F12.90 Cannabis use, unspecified, uncomplicated; I10 Essential (primary) hypertension
CPT/HCPCS: 73564; 99213; G0463

== ENCOUNTER 2025-04-19 08:21 | Outpatient (CLI) | payer MEDICAID, SELFPAY ==
--- NOTE | ~2025-04-19 | CT_ITS ---
EXAMINATION: CT lung screening DATE: 04/19/2025 08:47 INDICATION: Z87.891 - Personal history of nicotine dependence TECHNIQUE: Computed tomography (CT) of the chest was performed without intravenous contrast. Additional 3D reconstructions utilizing coronal maximum intensity projection (MIP) were performed. Automated exposure control and iterative reconstruction technique were employed. The dose-length product was 98 .28 mGy-cm. COMPARISON: None FINDINGS: Calcified nodules in the bilateral lower lobes and calcified AP window lymph node consistent with old granulomatous disease. Couple additional 1-2 mm noncalcified nodules in the left upper and lower lobes. No pneumonia, pulmonary edema or pleural effusion. Heart size is normal. No pericardial effusion. Thoracic aorta is normal in caliber. No pathologically enlarged thoracic lymphadenopathy. Mild thoracic spondylosis. IMPRESSION: 1. Lung-RADS category 2: Benign appearance or behavior. Continue annual screening with noncontrast low-dose chest CT in 12 months. Reviewed, dictated and finalized at location A. T CULLER IMPRESSION: 1. Lung-RADS category 2: Benign appearance or behavior. Continue annual screeni ng with noncontrast low-dose chest CT in 12 months.
--- OUTSIDE RECORDS SUMMARY | 2025-04-19 08:20 | XMS_ITS | Clinical Summary ---
Author Organization [facility] Address [address] [place] [address] Care Team Providers Care Lumber Carrier Name Role Phone Unavailable Primary Care Provider Unavailabl e Source Comments [facility],non-owned Affiliates and Associated Physician Practices is amultiple site organization consisting of ambulatory clinics and hospital sitesin [place], [place], [place] and [place]. This disclosure is being madepursuant to the Care Everywhere program and may not contain all information available regarding this patient. Last updated 18.[facility] Allergies No known active allergies Medications * [...] 3-dose series) 1996 SCREENING FOR DIABETES 10/09/2020 DEPRESSION SCREENING 06/13/2024 COVID-19 VACCINE (1 - 2023-2 5 season) 2025 INFLUENZA VACCINE (#1) 2025 ZOSTER VACCINE (1 [...]
[2025-04-19 08:59] LABS: Hematocrit 40.9 % (37.0-47.0); Hemoglobin 12.8 g/dL (12.0-15.0); Mean Corpuscular HGB Conc 31.3 g/dl (32-36); Mean Corpuscular Hemoglobin 22.0 pg (26-34); Mean Corpuscular Volume 70.2 fl (80-100); Platelet Count Result 378 k/mm3 (150-375); Red Blood Count 5.83 M/mm3 (4.2-5.4); White Blood Count 5.9 K/mm3 (4.5-10.0)
[2025-04-19 09:15] LABS: Alanine Aminotransferase 19 U/L (6-35); Albumin Level 4.5 g/dL (3.5-5.1); Alkaline Phosphatase 48 U/L (38-126); Anion Gap 7 mmol/L (4-12); Aspartate Amino Transferase 26 U/L (14-36); Bilirubin,Total 0.5 mg/dL (0.2-1.3); Blood Urea Nitrogen 11 mg/dL (7-17); Calcium 8.8 mg/dL (8.4-10.2); Carbon Dioxide 27 mmol/L (22-30); Chloride 104 mmol/L (98-107); Cholesterol 175 mg/dL (0-200); Estimated Glomerular Filt Rate > 60; Glucose 77 mg/dL (65-110); HDL Direct 37 mg/dL; Potassium 4.2 mmol/L (3.4-5.0); Sodium 138 mmol/L (137-145); Total Protein 7.5 g/dL (6.3-8.2); Triglycerides 172 mg/dL (<150)
[2025-04-19 09:50] LABS: Thyroid Stimulating Hormone 1.640 uIU/mL (0.465-4.680)
== END 2025-04-19 08:22 | disposition home or self-care (01) ==
PROVIDERS: PCP Nurse Practitioner; Visit Provider Nurse Practitioner
DX: Z12.2 Encounter for screening for malignant neoplasm of respiratory organs (principal); Z87.891 Personal history of nicotine dependence; I10 Essential (primary) hypertension; E03.9 Hypothyroidism, unspecified; E55.9 Vitamin D deficiency, unspecified; E78.5 Hyperlipidemia, unspecified
CPT/HCPCS: 36415; 71271; 80053; 80061; 82306; 84443; 85027